=== PATIENT | female | born 1940 | race Caucasian/White ===

== ENCOUNTER 2023-11-14 12:16 | Outpatient (CLI) | payer MEDICARE, OTHER | END 2023-11-14 23:59 | disposition critical access hospital (66) | LOC: EMS 12:16 | DX: M79.622 Pain in left upper arm (principal); M25.512 Pain in left shoulder; S01.511A Laceration without foreign body of lip, initial encounter; W18.39XA Other fall on same level, initial encounter; Y92.009 Unspecified place in unspecified non-institutional (private) residence as the place of occurrence of the external cause; Z79.01 Long term (current) use of anticoagulants | CPT/HCPCS: A0425; A0427 ==

== ENCOUNTER 2023-11-14 12:35 | Emergency (ER) | payer MEDICARE, OTHER ==
--- NOTE | 2023-11-14 12:45 | ED Physician Documentation ---
PD HPI Fall - Stated complaint Stated Complaint: GLF - History obtained from History obtained from: Patient, Family (spouse), EMS - History of Present Illness Mechanism of injury: Lost balance (She was leaned against a [place] doors that she thought was closed but they were partly open and not supported her so she fell face first. Feeling okay prior to that.) Fall distance: Standing position Where injury occurred: Home Timing - onset: How many minutes ago (30), Today Injury(ies) location: Face, Left Uppper Extremity (shoulder), Left Lower Extremity (knee) Pain level max: 9 (for shoulder) Pain level now: 9 Quality of pain: Pain (mostly at left shoulder, but also at lip/nose/periorbital.) Associated symptoms: Other (upper lip lac, pain around left orbit and nose.). No: LOC, AMS, Neck pain, Weakness, Paresthesias Worsens with: Movement (the shoulder is the most area of pain with any slight movement.) Contributing factors: Anticoagulated (for atrial fib history, currently in NSR with prior ablation. digoxin and propafanone currently.) Similar symptoms before: Has not had sx before Recently seen: Not recently seen Review of Systems Constitutional: denies: Fever Nose: denies: Rhinorrhea / runny nose, Congestion Throat: denies: Sore throat Respiratory: denies: Cough GI: denies: Vomiting, Diarrhea, Bloody / black stool PD PAST MEDICAL HISTORY - Past Medical History Cardiovascular: Atrial fibrillation Respiratory: None Neuro: None Endocrine/Autoimmune: None - Allergies Allergies/Adverse Reactions: Allergies Allergy/AdvReac Type Severity Reaction Status Date / Time codeine Allergy Mild Nausea Verified 11/14/23 13:08 morphine Allergy Nausea Verified 11/14/23 13:08 Many unknown Allergy Unknown Uncoded 11/14/23 13:10 PD ED PE NORMAL - Vitals Vital signs reviewed: Yes - General General: Alert and oriented X 3, Well developed/nourished, Other (in significant pain due to left shoulder, with clinically likely anterior dislocation. Pain with any slight movement. ) - HEENT HEENT: PERRL, EOMI, Other (upper lip with partial thickness tear not crossing joi border. upper left front tooth with small chip. Nose tender without deformity. SOme early ecchymosis left periorbital without pain on eye movement. Eye itself with clear anterior and posterrior chambers. ) - Neck Neck: Supple, no meningeal sign, No bony TTP, No adenopathy, Other (cleared by CT.). No: C-Spine cleared by NEXUS criteria (came without collar. No neck pain. Could not technically clear her from [place] neck rules due to age. ) - Cardiac Cardiac: RRR, No murmur - Respiratory Respiratory: No respiratory distress, Clear bilaterally, Other (no chest tenderness. ) - Abdomen Abdomen: Soft, Non tender - Derm Derm: Normal color, Warm and dry - Extremities Extremities: Other (left knee tnder anteriorly without deformity. Left shoulder with apparent dislocation. Can get xray to eval fracture too or not. ) - Neuro Neuro: Alert and oriented X 3, No motor deficit, No sensory deficit, Normal speech Eye Opening: Spontaneous Motor: Obeys Commands Verbal: Oriented GCS Score: 15 Results - Vitals Vitals: Vital Signs - 24 hr 11/14/23 11/14/23 11/14/23 12:45 13:41 13:47 Temperature 36.5 C 36.6 C 36.7 C Heart Rate 82 84 76 Respiratory 23 36 H 18 Rate Blood Pressure 158/78 H 206/81 H 185/71 H O2 Saturation 100 98 98 If not protocol 0 : Oxygen Flow, liters/minute 11/14/23 11/14/23 11/14/23 14:30 15:10 15:34 Temperature Heart Rate 75 72 73 Respiratory 13 12 18 Rate Blood Pressure 203/71 H 190/74 H 175/70 H O2 Saturation 99 99 97 If not protocol : Oxygen Flow, liters/minute 11/14/23 11/14/23 11/14/23 15:45 16:10 17:11 Temperature 36.1 C L Heart Rate 71 70 73 Respiratory 14 15 17 Rate Blood Pressure 175/70 H 183/65 H 185/67 H O2 Saturation 100 99 100 If not protocol : Oxygen Flow, liters/minute Oxygen O2 Source Room air - Labs Labs: Laboratory Tests 11/14/23 11/14/23 11/14/23 13:00 13:00 13:00 WBC 9.2 RBC 4.74 Hgb 13.3 Hct 40.8 MCV 86.1 MCH 28.1 MCHC 32.6 RDW 14.8 Plt Count 249 MPV 10.6 Neut # (Auto) 6.6 Lymph # (Auto) 1.6 Sherman # (Auto) 0.7 Eos # (Auto) 0.2 Baso # (Auto) 0.1 Absolute Nucleated RBC 0.00 Nucleated RBC % 0.0 PT 20.8 H INR 2.0 H Sodium 131 L Potassium 3.8 Chloride 96 L Carbon Dioxide 25 Anion Gap 10.0 BUN 12 Creatinine 0.5 L Estimated GFR (MDRD) 118 Glucose 110 H Calcium 9.3 Total Bilirubin 0.7 AST 17 ALT 24 Alkaline Phosphatase 105 Total Protein 6.6 Albumin 4.0 Globulin 2.6 Albumin/Globulin Ratio 1.5 Lipase 43 - Rads (name of study) left shoulder Relevant Findings:: Prelim report reviewed, EMP independent interpretation of test (anterior dislocation without fracture) shoulder post reduction Relevant Findings:: EMP independent interpretation of test (imporved location/ reduced) left knee xray Relevant Findings:: Prelim report reviewed (no fractures), EMP independent interpretation of test head CT Relevant Findings:: Prelim report reviewed, Discussed with rads (subdural hematoma in midline falx, with 8-9 mm max width, but runs long in the falx. ) cervical SPine CT Relevant Findings:: Prelim report reviewed (no fractures nor acute injuries), Discussed with rads, EMP independent interpretation of test facial CT Relevant Findings:: Prelim report reviewed, Discussed with rads (no facial fractures. ), EMP independent interpretation of test Procedures - Reduction Body part reduced: Left, Shoulder Fracture or dislocation: Dislocation Anesthesia: Dilaudid Shoulder reduction technique: [place] / ext rotation Reduction aftercare: NV intact, Xray confirms reduction, Alignment improved, Sling, Patient tolerated well - Procedural sedation Sedation prep: Informed consent, Time out completed, Last meal (breakfast about 8 am), PE performed, ASA 2 - mild disease Sedation Medications: propofol Mallampati classification: I Patient status during sedation: Responds to tactile, Vitals remained stable, Maintained airway, Recovered uneventfully, Hypoxia (transiently until ambu assist by RT.), Needed resp assistance (for less than a minute, with bag assisting) Sedation recovery: Recovered uneventfully, Back to baseline PD Medical Decision Making - ED course Complexity details: reviewed results (knee xray is good. Shoulder xray showing dislocation. PT/INR 2.0. CBC and chemistry panel without acute abnormalities. ), considered differential (patient and spouse describe mechanical fall with injury to face, shoulder, knee. No LOC. No neuro cognitive deficit. Main pain is shoulder left.), d/w patient Reviewed Lab Results: patient is such pain with shoulder and any movement, and has good neuro exam without headache, that I focused on the shoulder reduction initially before getting pt to CT. We did successfully reduce shoulder with propofol sedation. Subsequently then to CT for head/neck/face and this showed subdural hematoma in midline falx. Pt still with GCS 15. Talked with Transfer Center who said pt is auto-accept with injury, subdural and on Coumadin. They did agree with the already ordered [facility]. Pt and family updated about recommendation and acceptance at the trauma center. - Critical Care Time(min): 70 Time Includes: Direct patient care, Reassess patient, Document care, Coordinate care, Medical consult Data interpretation: Labs Procedures excluded from critical care time: See progress note (sedation and shoulder reduction) Departure - Departure Disposition: 02 Transfer Acute Care Hosp Clinical Impression: Anticoagulant long-term use, History of atrial fibrillation, Shoulder dislocation, Subdural hematoma, Knee contusion, Accidental fall, Facial contusion Condition: Stable Record reviewed to determine appropriate education?: Yes Forms: PCP List Discharge Date/Time: 11/14/23 16:45
[2023-11-14] MEDS: HYDROmorphone 0.5 MG/0.5 ML SYRINGE IVP STA (12:54)
[2023-11-14 13:05] LABS: BASOPHILS # (AUTO) 0.1 10^3/uL (0.0-0.1); BASOPHILS % (AUTO) 0.7 %; EOSINOPHILS # (AUTO) 0.2 10^3/uL (0.0-0.7); EOSINOPHILS % (AUTO) 1.9 %; HCT - HEMATOCRIT 40.8 % (37.0-47.0); HGB - HEMOGLOBIN 13.3 g/dL (12.0-16.0); LYMPHOCYTES # (AUTO) 1.6 10^3/uL (1.5-3.5); LYMPHOCYTES % (AUTO) 17.6 %; MEAN CORPUSCULAR HEMOGLOBIN 28.1 pg (27.0-31.0); MEAN CORPUSCULAR HGB CONC 32.6 g/dL (32.0-36.0); MEAN CORPUSCULAR VOLUME 86.1 fL (81.0-99.0); MEAN PLATELET VOLUME 10.6 fL (7.9-10.8); MONOCYTES # (AUTO) 0.7 10^3/uL (0.0-1.0); MONOCYTES % (AUTO) 7.2 %; NEUTROPHILS # (AUTO) 6.6 10^3/uL (1.5-6.6); NEUTROPHILS % (AUTO) 72.2 %; PLT - PLATELET COUNT 249 10^3/uL (130-450); RED BLOOD COUNT 4.74 10^6/uL (4.20-5.40); RED CELL DISTRIBUTION WIDTH 14.8 % (12.0-15.0); WHITE BLOOD COUNT 9.2 x10^3/uL (4.8-10.8)
[2023-11-14 13:11] LABS: PT - PROTHROMBIN TIME 20.8 secs (9.9-12.6)
--- NOTE | 2023-11-14 13:14 | XRAY Report ---
PROCEDURE: Shoulder 2+V LT INDICATIONS: fall with pain proximal humerus TECHNIQUE: 3 views of the shoulder were acquired. COMPARISON: None. FINDINGS: Bones: There is suboptimal positioning. The humeral head appears medial to the glenohumeral joint sp priscilla.. No suspicious bony lesions. Visualized ribs appear intact. Soft tissues: No suspicious soft tissue calcifications. The visualized lungs are within normal limi ts. IMPRESSION: No visualized acute fracture. There is appearance of medial dislocation of the glenohumeral joint spa ce. From positioning, is difficult to ascertain if this is anterior posterior dislocation as opposed to directly medial. Clinical correlation is recommended as well as repeat views. Reviewed by: Kristin Laguerre MD on 11/14/2023 1:13 PM PDT Approved by: Kristin Laguerre MD on 11/14/2023 1:13 PM PDT Station ID: [id number]
--- NOTE | 2023-11-14 13:15 | XRAY Report ---
PROCEDURE: Knee 4+V LT INDICATIONS: fall forward, pain knee anteriorly TECHNIQUE: 3 views of the knee(s) were acquired. COMPARISON: None. FINDINGS: Bones: No fractures or dislocations. No suspicious bony lesions. Severe medial and moderate later al patellofemoral compartment narrowing. Patellar osteophytes are present. No erosions. Soft tissues: No knee joint effusion. No suspicious soft tissue calcifications or masses. IMPRESSION: Tricompartmental arthritic change. No visualized acute fracture or dislocation. However, occult injury cannot be excluded. Recommend marilee rt interval imaging follow-up in 7-10 days as clinically indicated for additional evaluation. Reviewed by: Kristin Laguerre MD on 11/14/2023 1:14 PM PDT Approved by: Kristin Laguerre MD on 11/14/2023 1:14 PM PDT Station ID: [id number]
[2023-11-14 13:18] LABS: ALBUMIN/GLOBULIN RATIO 1.5 (1.0-2.2); BILIRUBIN,TOTAL 0.7 mg/dL (0.2-1.0); CALCIUM 9.3 mg/dL (8.5-10.3); CREATININE 0.5 mg/dL (0.6-1.3); POTASSIUM 3.8 mmol/L (3.5-4.5); TOTAL PROTEIN 6.6 g/dL (6.4-8.9)
[2023-11-14] MEDS: HYDROmorphone 1 MG/ML CARPUJECT IVP STA (13:24)
[2023-11-14] MEDS: PROPOFOL 200 MG/20 ML VIAL IVP STA (14:15)
[2023-11-14] MEDS: SODIUM CHLORIDE 0.9% 1,000 ML IV STA (14:16)
--- NOTE | 2023-11-14 14:39 | XRAY Report ---
PROCEDURE: Shoulder 2+V LT INDICATIONS: post reduction TECHNIQUE: 3 views of the shoulder were acquired. COMPARISON: Left shoulder radiograph on the same day. FINDINGS: Bones: There is interval reduction of earlier noted anterior inferior glenohumeral joint dislocation . Shoulder alignment is now anatomic. No gross acute fracture is noted. Acromioclavicular joint and g lenohumeral joint osteophytic changes are seen. Slight superior migration of humeral head is also. No suspicious bony lesions. Visualized ribs appear intact. Soft tissues: No suspicious soft tissue calcifications. The visualized lungs are within normal limi ts. IMPRESSION: Interval reduction of earlier noted glenohumeral joint dislocation with near anatomic shoulder alignm ent. No definite acute fracture is seen. Superior migration of humeral head in relation to glenoid wh ich can be seen associated with rotator cuff tendon rupture. Moderate shoulder joint osteoarthritis. Reviewed by: Davis Moffett MD on 11/14/2023 2:37 PM PDT Approved by: Davis Moffett MD on 11/14/2023 2:37 PM PDT Station ID: [id number]
--- NOTE | 2023-11-14 15:45 | CT Report ---
PROCEDURE: Head WO INDICATIONS: fall, struck face/head, on Warfarin TECHNIQUE: Noncontrast 4.5 mm thick angled axial sections acquired from the foramen magnum to the vertex. For r adiation dose reduction, the following was used: automated exposure control, adjustment of mA and/or kV according to patient size. COMPARISON: CT maxillofacial, cervical spine 11/14/2023 FINDINGS: Image quality: Excellent. The ventricular system and cortical sulci demonstrate atrophy, consistent for patient's stated age. There are areas of hypodensity in the periventricular and subcortical white matter. There is hyperde nsity within the anterior as well as portions of the posterior falx superiorly with a greatest transv erse dimension measuring 8 mm. No mass lesion or midline shift. Brainstem is unremarkable. Globes a re symmetrical. Sinuses are aerated. Osseous structures are intact. IMPRESSION: Falx subdural hematoma measuring greatest transverse dimension of 8 mm. Atrophy and chronic microvascular ischemic changes are present. The above findings were discussed with Dr. Neftali Jay on 11/14/2023 at 3:40 PM. Reviewed by: Kristin Laguerre MD on 11/14/2023 3:44 PM PDT Approved by: Kristin Laguerre MD on 11/14/2023 3:44 PM PDT Station ID: [id number]
--- NOTE | 2023-11-14 15:47 | CT Report ---
PROCEDURE: Maxillofacial WO INDICATIONS: fall, struck maxillary face/nose TECHNIQUE: Noncontrast 1.5 mm thick axial images acquired from the mandible through the frontal sinuses, with co samson and sagittal reformatting. For radiation dose reduction, the following was used: automated ex posure control, adjustment of mA and/or kV according to patient size. COMPARISON: CT head, cervical spine 11/14/2023 FINDINGS: Image quality: Excellent. Bones and teeth: Orbital el are intact. Sinus el show no fracture or deformity. Nasal bones and septum are intact. Visualized portions of the mandible demonstrate no fractures or subluxation. Zygomatic arches are intact. Pterygoid plates are intact. Visualized portions of the skull base an d auditory canals are intact. Sinuses: Paranasal sinuses are aerated, without fluid levels, mucosal thickening, or mucoceles. Mas toid air cells are aerated. Soft tissues: No edema, masses, or fluid collections. No enlarged lymph nodes. No soft tissue lace rations or debris. Intracranial contents demonstrate a falx hematoma better appreciated on CTA head. Vascular: Visualized vascular structures appear normal in the absence of contrast. Bony vascular fo ramina and canals are intact. IMPRESSION: No visualized fracture. Falx subdural hematoma better visualized on CTA head of 11/14/2023. Reviewed by: Kristin Laguerre MD on 11/14/2023 3:46 PM PDT Approved by: Kristin Laguerre MD on 11/14/2023 3:46 PM PDT Station ID: [id number]
--- NOTE | 2023-11-14 15:48 | CT Report ---
PROCEDURE: Cervical Spine WO INDICATIONS: fall, struck face/head TECHNIQUE: Noncontrast 3 mm thick sections acquired from the skull base to the T4 level. Sagittal and coronal r eformats were then constructed. For radiation dose reduction, the following was used: automated exp osure control, adjustment of mA and/or kV according to patient size. COMPARISON: None. FINDINGS: Image quality: Excellent. Bones: No fractures or dislocations. Visualized superior ribs are intact. Multilevel degenerative changes are present. There is trace retrolisthesis of C3 on C4, trace anterolisthesis of C5 on C6. Soft tissues: Prevertebral soft tissues are normal in thickness. No paravertebral hematomas. No ap ical pneumothoraces. IMPRESSION: Degenerative changes without visualized fracture. Reviewed by: Kristin Laguerre MD on 11/14/2023 3:47 PM PDT Approved by: Kristin Laguerre MD on 11/14/2023 3:47 PM PDT Station ID: [id number]
[2023-11-14 15:57] VITALS: O2SAT 100
[2023-11-14] MEDS: PROTHROMBIN COMPLEX CONC 500 UNIT VIAL IV STA (16:43)
[2023-11-14] MEDS ORDERED: PROTHROMBIN COMPLEX CONCENTRATE ONE (16:45)
[2023-11-14 17:18] VITALS: BP 185/67
== END 2023-11-14 16:45 | disposition short-term general hospital (02) ==
LOC: EDBD → ED 12:35
DX: S06.5X0A Traumatic subdural hemorrhage without loss of consciousness, initial encounter (principal); S43.005A Unspecified dislocation of left shoulder joint, initial encounter; S00.83XA Contusion of other part of head, initial encounter; S80.02XA Contusion of left knee, initial encounter; W18.39XA Other fall on same level, initial encounter; I48.91 Unspecified atrial fibrillation; Z79.01 Long term (current) use of anticoagulants
CPT/HCPCS: 23655; 36415; 70450; 70486; 72125; 73030; 73564; 80053; 83690; 85025; 85610; 96374; 99152; 99285; 99291; J1170; J7168

== ENCOUNTER 2023-11-15 15:23 | Inpatient (IN) | payer MEDICARE, OTHER ==
[2023-11-15] MEDS ORDERED: SODIUM CHLORIDE FLUSH 0.9% 10 ML SYRINGE IVP PRN (16:21)
--- NOTE | 2023-11-15 22:31 | HISTORY & PHYSICAL EXAMINATION ---
History of Present Illness - Admitted From Admitted From:: [facility] - History Obtained From Records Reviewed: Yes History obtained from: Patient and Daryn DURAN - History of Present Illness HPI Comment/Other: Annette Monroe is a 82-year-old woman who had a mechanical ground-level fall that occurred when she tripped on a door in a house. Patient fell forward and hit her head with no loss of consciousness. She was brought to the [facility] and underwent a CT scan of the head which revealed a left-sided eccentric I will sign subdural hematoma measuring approximately 9 mm in thickness with no mass effect or midline shift. Patient has a history of atrial fibrillation and is on warfarin. This was reversed with PCC and vitamin K and the decision was made to transfer the patient to [facility] for escalation of care. Patient's fall also resulted in a shoulder dislocation that has been resolved. At [facility] she underwent a repeat CT scan of the head which was stable. Her Luciano Coma Scale remained at 15 and her neurologic exam was normal. Patient and the family felt that she was below her baseline functional status and would need significant assistance at home that she did not have and because [facility] was on divert the patient was transferred back to [facility] for further care and disposition. History - Past Medical History Cardiovascular: reports: Hypertension, High cholesterol, Atrial fibrillation Respiratory: reports: Asthma, CPAP use Neuro: reports: Head injury Endocrine/Autoimmune: reports: None GI: reports: GERD, Colon polyps, Chronic constipation, Other : reports: Frequency Derm: reports: Herpes zoster Other Past Medical History: ongoing esophageal swelling- followed by paper twister - Past Surgical History General: reports: Appendectomy, Colonoscopy, EGD Ortho: reports: Arthroscopic surgery, Other /RAILROAD COOK: reports: Hysterectomy, Mastectomy Neuro: reports: Other HEENT: reports: Cataracts, Tonsil/Adenoidectomy Meds/Allgy - Home Medications Home Medications: Ambulatory Orders Medication Instructions Recorded Confirmed Digoxin [Lanoxin] 250 mcg PO DAILY 11/15/23 11/15/23 Lubriprostone 24 mcg PO QDAC 11/15/23 11/15/23 Magnesium Oxide [Mag Ox] 400 mg PO DAILYWM 11/15/23 11/15/23 Pravastatin Sodium 20 mg PO QPM 11/15/23 11/15/23 Propafenone HCl [Propafenone HCl 425 mg PO BID 11/15/23 11/15/23 ER] Spironolactone [Aldactone] 12.5 mg PO DAILY 11/15/23 11/15/23 Triamcinolone 0.1% Oint [Kenalog 1 applic TOP PRN 11/15/23 0.1% Oint] Warfarin [Coumadin] 5 mg PO 1400 11/15/23 11/15/23 - Allergies Allergies/Adverse Reactions: Allergies Allergy/AdvReac Type Severity Reaction Status Date / Time codeine Allergy Mild Nausea Verified 11/14/23 13:08 morphine Allergy Nausea Verified 11/14/23 13:08 Many unknown Allergy Unknown Uncoded 11/14/23 13:10 Exam - Vital Signs Vital Signs: Vital Signs x48h Temp Pulse Resp BP Pulse Ox 11/15/23 20:00 37.2 C 83 20 148/56 H 95 - Physical Exam General Appearance: positive: No acute distress, Alert Eyes Bilateral: positive: Other (Positive ecchymosis of left eye) Neck: positive: Thyroid nml, Trachea midline Respiratory: positive: Other (Good air exchange in all lung galicia no wheezing no crackles.) Cardiovascular: positive: Other (Positive S1-S2 no extra heart sounds.) Abdomen: positive: Other (Soft nontender nondistended positive bowel sounds.) Skin: positive: No rash Extremities: positive: Non-tender Conclusion/Plan - Problem List (1) Subdural hematoma Conclusion/Plan: Patient neurologic status is at baseline. Anticoagulation has been withheld. [facility] neurosurgery trauma clinic wants to see her back in approximately [address] scan of the head. They recommended holding her warfarin for 7 days. (2) Accidental fall Conclusion/Plan: Patient had an accidental fall after tripping over a door entryway. This resulted in a subdural hematoma, left periorbital ecchymosis, a dislocated shoulder that has been reduced. She has been evaluated by PT/OT at [facility] and at this time they feel it is necessary for her to go to a [place] [facility]. Patient is currently stable for transfer and awaiting placement for [place] [facility].
[2023-11-16] MEDS: SODIUM CHLORIDE FLUSH 0.9% 10 ML SYRINGE IVP SCH (01:30)
[2023-11-16] MEDS: PROPAFENONE HCL 425 MG PO SCH (08:42)
[2023-11-16] MEDS: polyethylene glycoL 3350 17 GM PACKET PO SCH (08:42)
[2023-11-16] MEDS: SENNA 8.6 MG TABLET PO PRN (08:42)
[2023-11-16 11:28] LABS: BASOPHILS % (AUTO) 0.5 %; EOSINOPHILS # (AUTO) 0.1 10^3/uL (0.0-0.7); EOSINOPHILS % (AUTO) 0.9 %; HCT - HEMATOCRIT 32.9 % (37.0-47.0); HGB - HEMOGLOBIN 10.8 g/dL (12.0-16.0); LYMPHOCYTES # (AUTO) 1.3 10^3/uL (1.5-3.5); LYMPHOCYTES % (AUTO) 15.9 %; MEAN CORPUSCULAR HEMOGLOBIN 28.7 pg (27.0-31.0); MEAN CORPUSCULAR HGB CONC 32.8 g/dL (32.0-36.0); MEAN CORPUSCULAR VOLUME 87.5 fL (81.0-99.0); MEAN PLATELET VOLUME 10.5 fL (7.9-10.8); MONOCYTES # (AUTO) 0.7 10^3/uL (0.0-1.0); MONOCYTES % (AUTO) 9.4 %; NEUTROPHILS # (AUTO) 5.8 10^3/uL (1.5-6.6); NEUTROPHILS % (AUTO) 72.8 %; PLT - PLATELET COUNT 220 10^3/uL (130-450); RED BLOOD COUNT 3.76 10^6/uL (4.20-5.40); WHITE BLOOD COUNT 7.9 x10^3/uL (4.8-10.8)
[2023-11-16 11:39] LABS: CALCIUM 8.8 mg/dL (8.5-10.3); CREATININE 0.4 mg/dL (0.6-1.3); MAGNESIUM 1.6 mg/dL (1.7-2.3); POTASSIUM 3.4 mmol/L (3.5-4.5)
[2023-11-16] MEDS: LOSARTAN 50 MG TABLET PO SCH (12:19)
[2023-11-16] MEDS: POTASSIUM CHLORIDE 20 MEQ/15 ML UDC PO ONE (17:05)
[2023-11-16] MEDS: MAGNESIUM OXIDE 400 MG TABLET PO SCH (17:05)
--- NOTE | 2023-11-16 17:57 | PHARMACY PROGRESS NOTE ---
- Best Possible Medication History Admit Date and Time: 11/15/231946 Processed by: Pharmacy Medications reviewed in ED?: No Medication History completed: Yes Patient Interview: Completed (Patient interview completed by broadcast operations technicianEnriqueta) Secondary Source(s): Prescription bottles, Spouse/Significant other, Insurance records As the person ultimately responsible for medication therapy, providers are able to order a medication from an existing home medication list in [facility] via the "Reconcile Routine" prior to Confirmation of that medication by production support engineer. Such practice is discouraged except when the physician, in their clinical judgment, deems that a medical need exists for a medication without regard to previous use.
--- NOTE | 2023-11-16 20:25 | PROVIDER PROGRESS NOTE ---
Assessment/Plan - Problem List (1) Subdural hematoma Assessment/Plan: (1) Subdural hematoma Conclusion/Plan: Patient neurologic status is at baseline. Anticoagulation has been withheld. [facility] neurosurgery trauma clinic wants to see her back in approximately [address] scan of the head. They recommended holding her warfarin for 7 days. (2) Accidental fall Conclusion/Plan: Patient had an accidental fall after tripping over a door entryway. This resulted in a subdural hematoma, left periorbital ecchymosis, a dislocated shoulder that has been reduced. She has been evaluated by PT/OT at [facility] and at this time they feel it is necessary for her to go to a [facility] facility. Patient is currently stable for transfer and awaiting placement for [facility] facility. (3) Atrial Fibrillation Continue propafenone. Reinitiate treatment with digoxin. - Current Meds Current Meds: Current Medications Generic Name Dose Route Start Last Admin Trade Name Freq PRN Reason Stop Dose Admin Losartan Potassium 50 mg 11/16/23 12:00 11/16/23 12:19 Losartan 50 Mg Tablet PO 50 mg DAILY DAISHA Administration Magnesium Oxide 400 mg 11/16/23 15:00 11/16/23 17:05 Magnesium Oxide 400 Mg Tablet PO 400 mg DAILYWM DAISHA Administration Propafenone Hcl Er 1 each 11/16/23 09:00 11/16/23 09:52 425 Mg Cap.Er.12h PO 1 each BID DAISHA Administration Polyethylene Glycol 17 gm 11/16/23 09:00 11/16/23 08:42 Polyethylene Glycol 3350 17 Gm Packet PO 17 gm DAILY DAISHA Administration Senna 8.6 mg 11/16/23 07:08 11/16/23 08:42 Senna 8.6 Mg Tablet PO 8.6 mg DAILY PRN Administration Constipation Sodium Chloride 10 ml 11/15/23 17:00 11/16/23 17:05 Sodium Chloride Flush 0.9% 10 Ml Syringe IVP 10 ml 0100,0900,1700 DAISHA Administration - Lab Result Fish Bone Diagrams: 11/16/23 11:22 11/16/23 11:22 - Additional Planning My Orders: My Active Orders 11/16/23 Evaluate and Treat OT [OT] Routine Evaluate and Treat PT [PT] Routine 11/16/23 Breakfast DIET [Soft Mechanical Diet] [DIET] 11/16/23 07:08 Senna [Senokot] 8.6 mg PO DAILY PRN 11/16/23 07:09 HYDROcod/ACETAM 5/325 [[place] 5/325] 1 tab PO Q4HR PRN 11/16/23 09:00 Patient Own Med 1 each PO BID polyethylene glycoL 3350 [Miralax] 17 gm PO DAILY 11/16/23 12:00 Losartan [Cozaar] 50 mg PO DAILY 11/16/23 15:00 Magnesium Oxide [Mag Ox] 400 mg PO DAILYWM 11/16/23 19:00 Budesonide [Pulmicort] 0.5 mg INH RTBID Subjective - Subjective Patient Reports: Other (Alert. Denies chest pain, shortness of breath and abdominal pain. She complains of intermittent left shoulder pain no other complaints at this time.) Objective Vital Signs: Vital Signs - 24 hr 11/16/23 11/16/23 11/16/23 00:05 07:52 10:04 Temperature 36.8 C 37.1 C Heart Rate [ 80 85 81 Brachial] Heart Rate [ Sitting] Heart Rate [ Standing] Respiratory 18 20 Rate Blood Pressure 135/51 H 161/72 H 158/62 H [Right Brachial artery] Blood Pressure [Right Radial artery] Blood Pressure [Sitting] Blood Pressure [Standing] O2 Saturation 97 96 O2 Saturation [ Sitting] 11/16/23 11/16/23 11/16/23 13:17 13:18 15:26 Temperature 37.0 C Heart Rate [ 75 Brachial] Heart Rate [ 89 89 Sitting] Heart Rate [ 97 97 Standing] Respiratory 18 Rate Blood Pressure [Right Brachial artery] Blood Pressure 163/62 H [Right Radial artery] Blood Pressure 135/58 H 135/58 H [Sitting] Blood Pressure 111/58 L 111/58 L [Standing] O2 Saturation 96 O2 Saturation [ 97 Sitting] 11/16/23 17:18 Temperature Heart Rate [ 79 Brachial] Heart Rate [ Sitting] Heart Rate [ Standing] Respiratory Rate Blood Pressure [Right Brachial artery] Blood Pressure 154/59 H [Right Radial artery] Blood Pressure [Sitting] Blood Pressure [Standing] O2 Saturation 95 O2 Saturation [ Sitting] Oxygen O2 Source Room air I&O (Last 24 Hrs): Intake and Output Totals x24h 11/14/23 11/15/23 11/16/23 23:59 23:59 23:59 Intake Total 1940 Output Total 100 350 Balance -100 1590 General: Alert, Oriented x3, Mild distress HEENT: Atraumatic Neck: No JVD, No thyromegaly Neuro: Alert, Non Focal Cardiovascular: Other (Positive S1-S2 no extra heart sounds.) Respiratory: Other (Good air exchange in all lung [place] no wheezing no crackles.) Abdomen: Other (Soft nondistended positive bowel sounds.) Extremities: No cyanosis, No edema Skin: No rashes - Results Results: Laboratory Results WBC 7.9 x10^3/uL (4.8-10.8) 11/16/23 11:22 RBC 3.76 10^6/uL (4.20-5.40) L 11/16/23 11:22 Hgb 10.8 g/dL (12.0-16.0) L 11/16/23 11:22 Hct 32.9 % (37.0-47.0) L 11/16/23 11:22 MCV 87.5 fL (81.0-99.0) 11/16/23 11:22 MCH 28.7 pg (27.0-31.0) 11/16/23 11:22 MCHC 32.8 g/dL (32.0-36.0) 11/16/23 11:22 RDW 15.0 % (12.0-15.0) 11/16/23 11:22 Plt Count 220 10^3/uL (130-450) 11/16/23 11:22 MPV 10.5 fL (7.9-10.8) 11/16/23 11:22 Neut # (Auto) 5.8 10^3/uL (1.5-6.6) 11/16/23 11:22 Lymph # (Auto) 1.3 10^3/uL (1.5-3.5) L 11/16/23 11:22 [place] # (Auto) 0.7 10^3/uL (0.0-1.0) 11/16/23 11:22 Eos # (Auto) 0.1 10^3/uL (0.0-0.7) 11/16/23 11:22 Baso # (Auto) 0.0 10^3/uL (0.0-0.1) 11/16/23 11:22 Absolute Nucleated RBC 0.00 x10^3/uL 11/16/23 11:22 Nucleated RBC % 0.0 /100WBC 11/16/23 11:22 Sodium 131 mmol/L (135-145) L 11/16/23 11:22 Potassium 3.4 mmol/L (3.5-4.5) L 11/16/23 11:22 Chloride 95 mmol/L (101-111) L 11/16/23 11:22 Carbon Dioxide 32 mmol/L (21-32) 11/16/23 11:22 Anion Gap 4.0 (6-13) L 11/16/23 11:22 BUN 7 mg/dL (6-20) 11/16/23 11:22 Creatinine 0.4 mg/dL (0.6-1.3) L 11/16/23 11:22 Estimated GFR (MDRD) 152 (>89) 11/16/23 11:22 Glucose 119 mg/dL (74-104) H 11/16/23 11:22 Calcium 8.8 mg/dL (8.5-10.3) 11/16/23 11:22 Phosphorus 3.0 mg/dL (2.5-5.0) 11/16/23 11:22 Magnesium 1.6 mg/dL (1.7-2.3) L 11/16/23 11:22
[2023-11-16] MEDS: HYDROcod/ACETAM 5/325 MG TABLET PO PRN (20:53)
[2023-11-16] MEDS: BUDESONIDE 0.5 MG/2 ML NEB INH SCH (23:25)
[2023-11-17] MEDS ORDERED: LORATADINE 10 MG TABLET PO PRN (09:00)
[2023-11-17] MEDS: DIGOXIN 125 MCG TABLET PO SCH (10:01)
[2023-11-17] MEDS: DOCUSATE SODIUM 250 MG CAPSULE PO SCH (10:05)
[2023-11-17] MEDS: SENNA 8.6 MG TABLET PO SCH (10:06)
--- NOTE | 2023-11-17 23:18 | PROVIDER PROGRESS NOTE ---
Assessment/Plan - Problem List (1) Subdural hematoma Assessment/Plan: Patient neurologic status is at baseline. Anticoagulation has been withheld. [facility] neurosurgery trauma clinic wants to see her back in approximately [address] scan of the head. They recommended holding her warfarin for 7 days. (2) Accidental fall Conclusion/Plan: Patient had an accidental fall after tripping over a door entryway. This resulted in a subdural hematoma, left periorbital ecchymosis, a dislocated shoulder that has been reduced. She has been evaluated by PT/OT at [facility] and at this time they feel it is necessary for her to go to a half-way facility. Patient is currently stable for transfer and awaiting placement for half-way facility. (3) Atrial Fibrillation Continue propafenone. Reinitiate treatment with digoxin. (4) Disposition Patient is medically cleared for transfer to a half-way facility. - Current Meds Current Meds: Current Medications Generic Name Dose Route Start Last Admin Trade Name Freq PRN Reason Stop Dose Admin Hydrocodone Bitart/Acetaminophen 1 tab 11/16/23 07:09 11/17/23 19:30 Hydrocod/Acetam 5/325 Mg Tablet PO 1 tab Q4HR PRN Administration Moderate Pain (Level 4-6) Budesonide 0.5 mg 11/16/23 19:00 11/17/23 20:19 Budesonide 0.5 Mg/2 Ml Neb INH 0.5 mg RTBID DAISHA Administration Digoxin 250 mcg 11/17/23 09:00 11/17/23 10:01 Digoxin 125 Mcg Tablet PO 250 mcg DAILY DAISHA Administration Docusate Sodium 250 - 500 mg 11/17/23 09:00 11/17/23 10:05 Docusate Sodium 250 Mg Capsule PO Not Given DAILY DAISHA Losartan Potassium 50 mg 11/16/23 12:00 11/17/23 10:02 Losartan 50 Mg Tablet PO 50 mg DAILY DAISHA Administration Magnesium Oxide 400 mg 11/16/23 15:00 11/17/23 10:05 Magnesium Oxide 400 Mg Tablet PO Not Given DAILYWM DAISHA Propafenone Hcl Er 1 each 11/16/23 09:00 11/17/23 20:32 425 Mg Cap.Er.12h PO 1 each BID DAISHA Administration Polyethylene Glycol 17 gm 11/16/23 09:00 11/17/23 10:02 Polyethylene Glycol 3350 17 Gm Packet PO 17 gm DAILY DAISHA Administration Senna 8.6 mg 11/16/23 07:08 11/16/23 08:42 Senna 8.6 Mg Tablet PO 8.6 mg DAILY PRN Administration Constipation Senna 8.6 - 17.2 mg 11/17/23 09:00 11/17/23 10:06 Senna 8.6 Mg Tablet PO Not Given DAILY DAISHA Sodium Chloride 10 ml 11/15/23 17:00 11/17/23 19:30 Sodium Chloride Flush 0.9% 10 Ml Syringe IVP 10 ml 0100,0900,1700 DAISHA Administration - Lab Result Fish Bone Diagrams: 11/16/23 11:22 11/16/23 11:22 - Additional Planning My Orders: My Active Orders 11/17/23 09:00 Digoxin [Lanoxin] 250 mcg PO DAILY Docusate Sodium 250Mg Capsule [Colace 250Mg Capsule] 250 - 500 mg PO DAILY Loratadine [Claritin] 10 mg PO DAILY PRN Senna [Senokot] 8.6 - 17.2 mg PO DAILY 11/17/23 20:21 Nebulizer [Nebulizer/MDI Tx.] [RC] BID Subjective - Subjective Patient Reports: Other (Alert. Denies headache complains of intermittent left shoulder pain. No other complaints at this time.) Objective Vital Signs: Vital Signs - 24 hr 11/16/23 11/17/23 11/17/23 23:35 06:53 07:37 Temperature 37.1 C 36.6 C 37.1 C Heart Rate Heart Rate [ 81 82 74 Brachial] Respiratory 18 18 22 Rate Blood Pressure 115/51 L 138/52 H [Right Brachial artery] Blood Pressure 123/64 [Right Radial artery] O2 Saturation 97 97 96 11/17/23 11/17/23 16:00 20:20 Temperature 36.7 C Heart Rate 66 Heart Rate [ 69 Brachial] Respiratory 16 20 Rate Blood Pressure [Right Brachial artery] Blood Pressure 166/77 H [Right Radial artery] O2 Saturation 97 Oxygen O2 Source Room air I&O (Last 24 Hrs): Intake and Output Totals x24h 11/15/23 11/16/23 11/17/23 23:59 23:59 23:59 Intake Total 1940 1830 Output Total 942 634 9694 Balance -100 1290 -70 General: Alert, No acute distress Neck: Supple, No JVD Neuro: Alert, Non Focal Cardiovascular: Other (Positive S1-S2 no extra heart sounds.) Respiratory: Other (Good air exchange in all lung [place] no wheezing no crackles.) Abdomen: Other (Positive bowel sounds soft nontender nondistended.) Extremities: No edema Skin: No rashes - Results Results: Laboratory Results WBC 7.9 x10^3/uL (4.8-10.8) 11/16/23 11:22 RBC 3.76 10^6/uL (4.20-5.40) L 11/16/23 11:22 Hgb 10.8 g/dL (12.0-16.0) L 11/16/23 11:22 Hct 32.9 % (37.0-47.0) L 11/16/23 11:22 MCV 87.5 fL (81.0-99.0) 11/16/23 11:22 MCH 28.7 pg (27.0-31.0) 11/16/23 11:22 MCHC 32.8 g/dL (32.0-36.0) 11/16/23 11:22 RDW 15.0 % (12.0-15.0) 11/16/23 11:22 Plt Count 220 10^3/uL (130-450) 11/16/23 11:22 MPV 10.5 fL (7.9-10.8) 11/16/23 11:22 Neut # (Auto) 5.8 10^3/uL (1.5-6.6) 11/16/23 11:22 Lymph # (Auto) 1.3 10^3/uL (1.5-3.5) L 11/16/23 11:22 [place] # (Auto) 0.7 10^3/uL (0.0-1.0) 11/16/23 11:22 Eos # (Auto) 0.1 10^3/uL (0.0-0.7) 11/16/23 11:22 Baso # (Auto) 0.0 10^3/uL (0.0-0.1) 11/16/23 11:22 Absolute Nucleated RBC 0.00 x10^3/uL 11/16/23 11:22 Nucleated RBC % 0.0 /100WBC 11/16/23 11:22 Sodium 131 mmol/L (135-145) L 11/16/23 11:22 Potassium 3.4 mmol/L (3.5-4.5) L 11/16/23 11:22 Chloride 95 mmol/L (101-111) L 11/16/23 11:22 Carbon Dioxide 32 mmol/L (21-32) 11/16/23 11:22 Anion Gap 4.0 (6-13) L 11/16/23 11:22 BUN 7 mg/dL (6-20) 11/16/23 11:22 Creatinine 0.4 mg/dL (0.6-1.3) L 11/16/23 11:22 Estimated GFR (MDRD) 152 (>89) 11/16/23 11:22 Glucose 119 mg/dL (74-104) H 11/16/23 11:22 Calcium 8.8 mg/dL (8.5-10.3) 11/16/23 11:22 Phosphorus 3.0 mg/dL (2.5-5.0) 11/16/23 11:22 Magnesium 1.6 mg/dL (1.7-2.3) L 11/16/23 11:22
--- NOTE | 2023-11-18 21:39 | PROVIDER PROGRESS NOTE ---
Assessment/Plan - Problem List (1) Subdural hematoma Assessment/Plan: Patient neurologic status is at baseline. Anticoagulation has been withheld. [facility] neurosurgery trauma clinic wants to see her back in approximately [address] scan of the head. They recommended holding her warfarin for 7 days. (2) Accidental fall Conclusion/Plan: Patient had an accidental fall after tripping over a door entryway. This resulted in a subdural hematoma, left periorbital ecchymosis, a dislocated shoulder that has been reduced. She has been evaluated by PT/OT at [facility] and at this time they feel it is necessary for her to go to a prison facility. Patient is currently stable for transfer and awaiting placement for prison facility. (3) Atrial Fibrillation Continue propafenone. Reinitiate treatment with digoxin. (4) Disposition Patient is medically cleared for transfer to a prison facility. - Current Meds Current Meds: Current Medications Generic Name Dose Route Start Last Admin Trade Name Freq PRN Reason Stop Dose Admin Hydrocodone Bitart/Acetaminophen 1 tab 11/16/23 07:09 11/18/23 18:15 Hydrocod/Acetam 5/325 Mg Tablet PO 1 tab Q4HR PRN Administration Moderate Pain (Level 4-6) Budesonide 0.5 mg 11/16/23 19:00 11/18/23 17:48 Budesonide 0.5 Mg/2 Ml Neb INH 0.5 mg RTBID DAISHA Administration Digoxin 250 mcg 11/17/23 09:00 11/18/23 09:12 Digoxin 125 Mcg Tablet PO 250 mcg DAILY DAISHA Administration Docusate Sodium 250 - 500 mg 11/17/23 09:00 11/18/23 09:12 Docusate Sodium 250 Mg Capsule PO 250 mg DAILY DAISHA Administration Losartan Potassium 50 mg 11/16/23 12:00 11/18/23 09:12 Losartan 50 Mg Tablet PO 50 mg DAILY DAISHA Administration Magnesium Oxide 400 mg 11/16/23 15:00 11/18/23 09:12 Magnesium Oxide 400 Mg Tablet PO Not Given DAILYWM DAISHA Propafenone Hcl Er 1 each 11/16/23 09:00 11/18/23 10:31 425 Mg Cap.Er.12h PO 1 each BID DAISHA Administration Polyethylene Glycol 17 gm 11/16/23 09:00 11/18/23 09:12 Polyethylene Glycol 3350 17 Gm Packet PO 17 gm DAILY DAISHA Administration Senna 8.6 - 17.2 mg 11/17/23 09:00 11/18/23 12:34 Senna 8.6 Mg Tablet PO Not Given DAILY DAISHA Sodium Chloride 10 ml 11/15/23 17:00 11/18/23 16:49 Sodium Chloride Flush 0.9% 10 Ml Syringe IVP 10 ml 0100,0900,1700 DAISHA Administration - Lab Result Fish Bone Diagrams: 11/16/23 11:22 11/16/23 11:22 - Additional Planning My Orders: My Active Orders 11/19/23 07:00 Lubriprostone 24 mcg PO QDAC 11/19/23 09:00 Senna [Senokot] 8.6 mg PO DAILY Subjective - Subjective Patient Reports: Other (Alert. Patient appears to be at her baseline. She wants to get out of bed more. She has no other complaints at this time.) Objective Vital Signs: Vital Signs - 24 hr 11/18/23 11/18/23 11/18/23 00:55 07:49 08:00 Temperature 36.8 C 36.9 C Heart Rate 80 Heart Rate [ 72 72 Brachial] Respiratory 16 20 16 Rate Blood Pressure 155/63 H 198/76 H [Right Radial artery] O2 Saturation 96 97 11/18/23 11/18/23 16:00 17:53 Temperature 37.1 C Heart Rate 71 Heart Rate [ 65 Brachial] Respiratory 16 18 Rate Blood Pressure 171/72 H [Right Radial artery] O2 Saturation 96 Oxygen O2 Source Room air I&O (Last 24 Hrs): Intake and Output Totals x24h 11/16/23 11/17/23 11/18/23 23:59 23:59 23:59 Intake Total 1940 1830 1540 Output Total 650 1900 4150 Balance 1290 -70 -2610 General: Alert, Oriented x3, No acute distress HEENT: Atraumatic Neck: Supple, No JVD Lymphatic: no adenopathy Neuro: Alert, Non Focal Cardiovascular: Other (Positive S1-S2 no extra heart sounds.) Respiratory: Other (Good air exchange in all lung [place] no wheezing no crackles.) Abdomen: Normal bowel sounds, Soft, No tenderness, Other Extremities: No cyanosis, No edema Skin: No rashes - Results Results: Laboratory Results WBC 7.9 x10^3/uL (4.8-10.8) 11/16/23 11: RBC 3.76 10^6/uL (4.20-5.40) L 11/16/23 11:22 Hgb 10.8 g/dL (12.0-16.0) L 11/16/23 11:22 Hct 32.9 % (37.0-47.0) L 11/16/23 11:22 MCV 87.5 fL (81.0-99.0) 11/16/23 11:22 MCH 28.7 pg (27.0-31.0) 11/16/23 11:22 MCHC 32.8 g/dL (32.0-36.0) 11/16/23 11:22 RDW 15.0 % (12.0-15.0) 11/16/23 11:22 Plt Count 220 10^3/uL (130-450) 11/16/23 11:22 MPV 10.5 fL (7.9-10.8) 11/16/23 11:22 Neut # (Auto) 5.8 10^3/uL (1.5-6.6) 11/16/23 11:22 Lymph # (Auto) 1.3 10^3/uL (1.5-3.5) L 11/16/23 11:22 [place] # (Auto) 0.7 10^3/uL (0.0-1.0) 11/16/23 11:22 Eos # (Auto) 0.1 10^3/uL (0.0-0.7) 11/16/23 11:22 Baso # (Auto) 0.0 10^3/uL (0.0-0.1) 11/16/23 11:22 Absolute Nucleated RBC 0.00 x10^3/uL 11/16/23 11:22 Nucleated RBC % 0.0 /100WBC 11/16/23 11:22 Sodium 131 mmol/L (135-145) L 11/16/23 11:22 Potassium 3.4 mmol/L (3.5-4.5) L 11/16/23 11:22 Chloride 95 mmol/L (101-111) L 11/16/23 11:22 Carbon Dioxide 32 mmol/L (21-32) 11/16/23 11:22 Anion Gap 4.0 (6-13) L 11/16/23 11:22 BUN 7 mg/dL (6-20) 11/16/23 11:22 Creatinine 0.4 mg/dL (0.6-1.3) L 11/16/23 11:22 Estimated GFR (MDRD) 152 (>89) 11/16/23 11:22 Glucose 119 mg/dL (74-104) H 11/16/23 11:22 Calcium 8.8 mg/dL (8.5-10.3) 11/16/23 11:22 Phosphorus 3.0 mg/dL (2.5-5.0) 11/16/23 11:22 Magnesium 1.6 mg/dL (1.7-2.3) L 11/16/23 11:22
[2023-11-19 06:02] LABS: BASOPHILS # (AUTO) 0.1 10^3/uL (0.0-0.1); BASOPHILS % (AUTO) 0.9 %; EOSINOPHILS # (AUTO) 0.4 10^3/uL (0.0-0.7); EOSINOPHILS % (AUTO) 5.2 %; HCT - HEMATOCRIT 32.8 % (37.0-47.0); HGB - HEMOGLOBIN 10.3 g/dL (12.0-16.0); LYMPHOCYTES # (AUTO) 1.4 10^3/uL (1.5-3.5); LYMPHOCYTES % (AUTO) 20.3 %; MEAN CORPUSCULAR HEMOGLOBIN 28.5 pg (27.0-31.0); MEAN CORPUSCULAR HGB CONC 31.4 g/dL (32.0-36.0); MEAN CORPUSCULAR VOLUME 90.6 fL (81.0-99.0); MEAN PLATELET VOLUME 10.1 fL (7.9-10.8); MONOCYTES # (AUTO) 0.6 10^3/uL (0.0-1.0); MONOCYTES % (AUTO) 8.2 %; NEUTROPHILS # (AUTO) 4.5 10^3/uL (1.5-6.6); NEUTROPHILS % (AUTO) 64.8 %; PLT - PLATELET COUNT 252 10^3/uL (130-450); RED BLOOD COUNT 3.62 10^6/uL (4.20-5.40); RED CELL DISTRIBUTION WIDTH 14.9 % (12.0-15.0)
[2023-11-19 06:17] LABS: CALCIUM 8.9 mg/dL (8.5-10.3); CREATININE 0.4 mg/dL (0.6-1.3); MAGNESIUM 1.8 mg/dL (1.7-2.3); PHOSPHORUS 3.3 mg/dL (2.5-5.0); POTASSIUM 3.8 mmol/L (3.5-4.5)
[2023-11-19] MEDS: LUBIPROSTONE PO SCH (07:30)
[2023-11-19] MEDS: SENNA 8.6 MG TABLET PO SCH (09:34)
[2023-11-19] MEDS: LOSARTAN 50 MG TABLET PO SCH ×2 (12:39→13:39)
[2023-11-19] MEDS ORDERED: LOSARTAN 50 MG TABLET PO SCH (21:00)
--- NOTE | 2023-11-19 22:52 | PROVIDER PROGRESS NOTE ---
Assessment/Plan - Problem List (1) Subdural hematoma Assessment/Plan: Patient neurologic status is at baseline. Anticoagulation has been withheld. [facility] neurosurgery trauma clinic wants to see her back in approximately [address] scan of the head. They recommended holding her warfarin for 7 days. (2) Accidental fall Conclusion/Plan: Patient had an accidental fall after tripping over a door entryway. This resulted in a subdural hematoma, left periorbital ecchymosis, a dislocated shoulder that has been reduced. She has been evaluated by PT/OT at [facility] and at this time they feel it is necessary for her to go to a detention facility. Patient is currently stable for transfer and awaiting placement for detention facility. (3) Atrial Fibrillation Continue propafenone. Reinitiate treatment with digoxin. (4) Hypertension Continue Losartan 50 mg twice daily. (4) Disposition Patient is medically cleared for transfer to a detention facility. - Current Meds Current Meds: Current Medications Generic Name Dose Route Start Last Admin Trade Name Freq PRN Reason Stop Dose Admin Hydrocodone Bitart/Acetaminophen 1 tab 11/16/23 07:09 11/18/23 18:15 Hydrocod/Acetam 5/325 Mg Tablet PO 1 tab Q4HR PRN Administration Moderate Pain (Level 4-6) Budesonide 0.5 mg 11/16/23 19:00 11/19/23 18:13 Budesonide 0.5 Mg/2 Ml Neb INH 0.5 mg RTBID DAISHA Administration Digoxin 250 mcg 11/17/23 09:00 11/19/23 09:24 Digoxin 125 Mcg Tablet PO 250 mcg DAILY DAISHA Administration Docusate Sodium 250 - 500 mg 11/17/23 09:00 11/19/23 09:33 Docusate Sodium 250 Mg Capsule PO Not Given DAILY DAISHA Magnesium Oxide 400 mg 11/16/23 15:00 11/19/23 09:24 Magnesium Oxide 400 Mg Tablet PO 400 mg DAILYWM DAISHA Administration Propafenone Hcl Er 1 each 11/16/23 09:00 11/19/23 21:10 425 Mg Cap.Er.12h PO 1 each BID DAISHA Administration Polyethylene Glycol 17 gm 11/16/23 09:00 11/19/23 09:34 Polyethylene Glycol 3350 17 Gm Packet PO Not Given DAILY DIASHA Senna 8.6 - 17.2 mg 11/17/23 09:00 11/19/23 09:34 Senna 8.6 Mg Tablet PO Not Given DAILY [facility] Senna 8.6 mg 11/19/23 09:00 11/19/23 09:34 Senna 8.6 Mg Tablet PO Not Given DAILY [facility] Sodium Chloride 10 ml 11/15/23 17:00 11/19/23 21:10 Sodium Chloride Flush 0.9% 10 Ml Syringe IVP 10 ml 0100,0900,1700 [facility] Administration - Lab Result Fish Bone Diagrams: 11/19/23 05:51 11/19/23 05:51 - Additional Planning My Orders: My Active Orders 11/19/23 09:00 Senna [Senokot] 8.6 mg PO DAILY 11/19/23 Lunch Dysphagia - Puree [DIET] 11/20/23 07:00 Lubriprostone 24 mcg PO QDAC Subjective - Subjective Patient Reports: Other (Alert. Denies chest pain, shortness of breath and abdominal pain. Continues to complain of intermittent left shoulder pain.) Objective Vital Signs: Vital Signs - 24 hr 11/18/23 11/19/23 11/19/23 23:37 01:14 08:00 Temperature 36.5 C 37.2 C Heart Rate Heart Rate [ 72 66 Brachial] Respiratory 16 20 Rate Blood Pressure 162/72 H [Right Brachial artery] Blood Pressure 144/58 H 197/84 H [Right Radial artery] O2 Saturation 98 97 11/19/23 11/19/23 11/19/23 10:39 14:03 16:00 Temperature 37.0 C Heart Rate 80 Heart Rate [ 70 Brachial] Respiratory 16 16 Rate Blood Pressure 158/58 H 145/54 H [Right Brachial artery] Blood Pressure [Right Radial artery] O2 Saturation 97 11/19/23 18:14 Temperature Heart Rate 67 Heart Rate [ Brachial] Respiratory 20 Rate Blood Pressure [Right Brachial artery] Blood Pressure [Right Radial artery] O2 Saturation Oxygen O2 Source Room air I&O (Last 24 Hrs): Intake and Output Totals x24h 11/17/23 11/18/23 11/19/23 23:59 23:59 23:59 Intake Total 1830 1540 2220 Output Total 1900 6850 3888 Balance -98 -9694 -3556 General: Alert, Oriented x3, No acute distress Neck: No JVD Neuro: Alert, Non Focal Cardiovascular: Other (Positive S1-S2 no extra heart sounds.) Respiratory: Other (Good air exchange in all lung [place] no wheezing no crackles.) Abdomen: Other (Soft. Nontender nondistended positive bowel sounds) Extremities: No cyanosis, No edema Skin: No rashes - Results Results: Laboratory Results WBC 7.0 x10^3/uL (4.8-10.8) 11/19/23 05:51 RBC 3.62 10^6/uL (4.20-5.40) L 11/19/23 05:51 Hgb 10.3 g/dL (12.0-16.0) L 11/19/23 05:51 Hct 32.8 % (37.0-47.0) L 11/19/23 05:51 MCV 90.6 fL (81.0-99.0) 11/19/23 05:51 MCH 28.5 pg (27.0-31.0) 11/19/23 05:51 MCHC 31.4 g/dL (32.0-36.0) L 11/19/23 05:51 RDW 14.9 % (12.0-15.0) 11/19/23 05:51 Plt Count 252 10^3/uL (130-450) 11/19/23 05:51 MPV 10.1 fL (7.9-10.8) 11/19/23 05:51 Neut # (Auto) 4.5 10^3/uL (1.5-6.6) 11/19/23 05:51 Lymph # (Auto) 1.4 10^3/uL (1.5-3.5) L 11/19/23 05:51 [place] # (Auto) 0.6 10^3/uL (0.0-1.0) 11/19/23 05:51 Eos # (Auto) 0.4 10^3/uL (0.0-0.7) 11/19/23 05:51 Baso # (Auto) 0.1 10^3/uL (0.0-0.1) 11/19/23 05:51 Absolute Nucleated RBC 0.00 x10^3/uL 11/19/23 05:51 Nucleated RBC % 0.0 /100WBC 11/19/23 05:51 Sodium 134 mmol/L (135-145) L 11/19/23 05:51 Potassium 3.8 mmol/L (3.5-4.5) 11/19/23 05:51 Chloride 99 mmol/L (101-111) L 11/19/23 05:51 Carbon Dioxide 30 mmol/L (21-32) 11/19/23 05:51 Anion Gap 5.0 (6-13) L 11/19/23 05:51 BUN 7 mg/dL (6-20) 11/19/23 05:51 Creatinine 0.4 mg/dL (0.6-1.3) L 11/19/23 05:51 Estimated GFR (MDRD) 152 (>89) 11/19/23 05:51 Glucose 101 mg/dL (74-104) 11/19/23 05:51 Calcium 8.9 mg/dL (8.5-10.3) 11/19/23 05:51 Phosphorus 3.3 mg/dL (2.5-5.0) 11/19/23 05:51 Magnesium 1.8 mg/dL (1.7-2.3) 11/19/23 05:51
[2023-11-20] MEDS: LUBIPROSTONE PO SCH (07:51)
[2023-11-20] MEDS: LOSARTAN 50 MG TABLET PO SCH (09:59)
--- NOTE | 2023-11-20 21:56 | PROVIDER PROGRESS NOTE ---
Assessment/Plan - Problem List (1) Subdural hematoma Assessment/Plan: Patient neurologic status is at baseline. Anticoagulation has been withheld. Merged With [facility] neurosurgery trauma clinic wants to see her back in approximately [address] scan of the head. They recommended holding her warfarin for 7 days. (2) Accidental fall Conclusion/Plan: Patient had an accidental fall after tripping over a door entryway. This resulted in a subdural hematoma, left periorbital ecchymosis, a dislocated shoulder that has been reduced. She has been evaluated by PT/OT at [facility] and at this time they feel it is necessary for her to go to a halfway facility. Patient is currently stable for transfer and awaiting placement for halfway facility. (3) Atrial Fibrillation Continue propafenone. Reinitiate treatment with digoxin. (4) Hypertension Continue Losartan 50 mg twice daily. (4) Disposition Patient is medically cleared for transfer to a halfway facility. - Current Meds Current Meds: Current Medications Generic Name Dose Route Start Last Admin Trade Name Freq PRN Reason Stop Dose Admin Hydrocodone Bitart/Acetaminophen 1 tab 11/16/23 07:09 11/18/23 18:15 Hydrocod/Acetam 5/325 Mg Tablet PO 1 tab Q4HR PRN Administration Moderate Pain (Level 4-6) Budesonide 0.5 mg 11/16/23 19:00 11/20/23 18:48 Budesonide 0.5 Mg/2 Ml Neb INH 0.5 mg RTBID DAISHA Administration Digoxin 250 mcg 11/17/23 09:00 11/20/23 09:59 Digoxin 125 Mcg Tablet PO 250 mcg DAILY DAISHA Administration Docusate Sodium 250 - 500 mg 11/17/23 09:00 11/20/23 10:00 Docusate Sodium 250 Mg Capsule PO Not Given DAILY DAISHA Losartan Potassium 50 mg 11/20/23 09:00 11/20/23 20:41 Losartan 50 Mg Tablet PO 50 mg BID DAISHA Administration Magnesium Oxide 400 mg 11/16/23 15:00 11/20/23 09:59 Magnesium Oxide 400 Mg Tablet PO 400 mg DAILYWM DAISHA Administration Non-Formulary Medication 24 mcg 11/20/23 07:00 11/20/23 07:51 Lubriprostone PO 24 mcg QDAC DAISHA Administration Propafenone Hcl Er 1 each 11/16/23 09:00 11/20/23 09:59 425 Mg Cap.Er.12h PO 1 each BID DAISHA Administration Polyethylene Glycol 17 gm 11/16/23 09:00 11/20/23 10:00 Polyethylene Glycol 3350 17 Gm Packet PO Not Given DAILY DAISHA Senna 8.6 - 17.2 mg 11/17/23 09:00 11/20/23 10:00 Senna 8.6 Mg Tablet PO Not Given DAILY DAISHA Senna 8.6 mg 11/19/23 09:00 11/20/23 10:00 Senna 8.6 Mg Tablet PO Not Given DAILY DAISHA Sodium Chloride 10 ml 11/15/23 17:00 11/20/23 18:28 Sodium Chloride Flush 0.9% 10 Ml Syringe IVP 10 ml 0100,0900,1700 DAISHA Administration - Lab Result Fish Bone Diagrams: 11/19/23 05:51 11/19/23 05:51 - Additional Planning My Orders: My Active Orders 11/20/23 07:00 Lubriprostone 24 mcg PO QDAC 11/20/23 09:00 Losartan [Cozaar] 50 mg PO BID Subjective - Subjective Patient Reports: Other (Alert. Denies chest pain shortness of breath and abdominal pain.She continues to complain of left shoulder pain) Objective Vital Signs: Vital Signs - 24 hr 11/20/23 11/20/23 11/20/23 00:28 07:20 07:46 Temperature 36.7 C 37.4 C Heart Rate 71 Heart Rate [ 75 70 Brachial] Respiratory 20 18 18 Rate Blood Pressure 138/53 H 151/61 H [Right Brachial artery] Blood Pressure [Right Radial artery] O2 Saturation 99 97 11/20/23 11/20/23 11/20/23 16:00 18:32 18:49 Temperature 36.9 C Heart Rate 89 Heart Rate [ 68 Brachial] Respiratory 16 18 Rate Blood Pressure 164/62 H 145/51 H [Right Brachial artery] Blood Pressure [Right Radial artery] O2 Saturation 97 11/20/23 20:40 Temperature Heart Rate Heart Rate [ 79 Brachial] Respiratory Rate Blood Pressure [Right Brachial artery] Blood Pressure 144/51 H [Right Radial artery] O2 Saturation Oxygen O2 Source Room air I&O (Last 24 Hrs): Intake and Output Totals x24h 11/18/23 11/19/23 11/20/23 23:59 23:59 23:59 Intake Total 1540 2220 600 Output Total 8608 [id number] 0061 [facility] -[id number] [id number] [phone] General: Alert, Oriented x3 Neck: Supple, No JVD Neuro: Alert, Non Focal Cardiovascular: Other (Positive S1-S2 no extra heart sounds.) Respiratory: Other (Good air exchange in all lung galicia no wheezing no crack les.) Abdomen: Other (Soft nontender positive bowel sounds) Extremities: No clubbing, No edema Skin: No rashes - Results Results: Laboratory Results WBC 7.0 x10^3/uL (4.8-10.8) 11/19/23 05:51 RBC 3.62 10^6/uL (4.20-5.40) L 11/19/23 05:51 Hgb 10.3 g/dL (12.0-16.0) L 11/19/23 05:51 Hct 32.8 % (37.0-47.0) L 11/19/23 05:51 MCV 90.6 fL (81.0-99.0) 11/19/23 05:51 MCH 28.5 pg (27.0-31.0) 11/19/23 05:51 MCHC 31.4 g/dL (32.0-36.0) L 11/19/23 05:51 RDW 14.9 % (12.0-15.0) 11/19/23 05:51 Plt Count 252 10^3/uL (130-450) 11/19/23 05:51 MPV 10.1 fL (7.9-10.8) 11/19/23 05:51 Neut # (Auto) 4.5 10^3/uL (1.5-6.6) 11/19/23 05:51 Lymph # (Auto) 1.4 10^3/uL (1.5-3.5) L 11/19/23 05:51 [place] # (Auto) 0.6 10^3/uL (0.0-1.0) 11/19/23 05:51 Eos # (Auto) 0.4 10^3/uL (0.0-0.7) 11/19/23 05:51 Baso # (Auto) 0.1 10^3/uL (0.0-0.1) 11/19/23 05:51 Absolute Nucleated RBC 0.00 x10^3/uL 11/19/23 05:51 Nucleated RBC % 0.0 /100WBC 11/19/23 05:51 Sodium 134 mmol/L (135-145) L 11/19/23 05:51 Potassium 3.8 mmol/L (3.5-4.5) 11/19/23 05:51 Chloride 99 mmol/L (101-111) L 11/19/23 05:51 Carbon Dioxide 30 mmol/L (21-32) 11/19/23 05:51 Anion Gap 5.0 (6-13) L 11/19/23 05:51 BUN 7 mg/dL (6-20) 11/19/23 05:51 Creatinine 0.4 mg/dL (0.6-1.3) L 11/19/23 05:51 Estimated GFR (MDRD) 152 (>89) 11/19/23 05:51 Glucose 101 mg/dL (74-104) 11/19/23 05:51 Calcium 8.9 mg/dL (8.5-10.3) 11/19/23 05:51 Phosphorus 3.3 mg/dL (2.5-5.0) 11/19/23 05:51 Magnesium 1.8 mg/dL (1.7-2.3) 11/19/23 05:51
[2023-11-21 05:57] LABS: BASOPHILS % (AUTO) 0.6 %; EOSINOPHILS # (AUTO) 0.3 10^3/uL (0.0-0.7); EOSINOPHILS % (AUTO) 3.7 %; HCT - HEMATOCRIT 31.9 % (37.0-47.0); HGB - HEMOGLOBIN 10.4 g/dL (12.0-16.0); LYMPHOCYTES # (AUTO) 1.9 10^3/uL (1.5-3.5); LYMPHOCYTES % (AUTO) 27.4 %; MEAN CORPUSCULAR HEMOGLOBIN 28.9 pg (27.0-31.0); MEAN CORPUSCULAR HGB CONC 32.6 g/dL (32.0-36.0); MEAN CORPUSCULAR VOLUME 88.6 fL (81.0-99.0); MEAN PLATELET VOLUME 10.2 fL (7.9-10.8); MONOCYTES # (AUTO) 0.6 10^3/uL (0.0-1.0); MONOCYTES % (AUTO) 9.1 %; NEUTROPHILS # (AUTO) 4.1 10^3/uL (1.5-6.6); NEUTROPHILS % (AUTO) 58.3 %; PLT - PLATELET COUNT 257 10^3/uL (130-450); RED CELL DISTRIBUTION WIDTH 15.3 % (12.0-15.0)
[2023-11-21 06:07] LABS: INR 1.2 (0.8-1.2); PT - PROTHROMBIN TIME 12.4 secs (9.9-12.6)
[2023-11-21 06:17] LABS: CALCIUM 9.1 mg/dL (8.5-10.3); CREATININE 0.4 mg/dL (0.6-1.3); MAGNESIUM 1.9 mg/dL (1.7-2.3); PHOSPHORUS 3.4 mg/dL (2.5-5.0); POTASSIUM 3.6 mmol/L (3.5-4.5)
[2023-11-21 07:46] VITALS: BP 151/63; O2SAT 96
--- NOTE | 2023-11-21 09:10 | Discharge Plan ---
"Discharge Plan for SNF / [facility]IELA - Discharge Plan And Transition Orders Problem Reviewed?: Yes Disposition: 03 SNF DC/Xfer Condition: Good Allergies and Adverse Reactions: Allergies Allergy/AdvReac Type Severity Reaction Status Date / Time codeine Allergy Mild Nausea Verified 11/14/23 13:08 morphine Allergy Nausea Verified 11/14/23 13:08 - SNF / ASSISTED Transition Orders Discharge Diagnosis: (1) Subdural hematoma Assessment/Plan: Patient neurologic status is at baseline. Anticoagulation has been withheld. [facility] neurosurgery trauma clinic wants to see her back in approximately [address] scan of the head. They recommended holding her warfarin for 7 days. (2) Accidental fall Conclusion/Plan: Patient had an accidental fall after tripping over a door entryway. This resulted in a subdural hematoma, left periorbital ecchymosis, a dislocated shoulder that has been reduced. She has been evaluated by PT/OT at [facility] and at this time they feel it is necessary for her to go to a long-term facility. Patient is currently stable for transfer and awaiting placement for long-term facility. (3) Atrial Fibrillation Continue propafenone. Reinitiate treatment with digoxin. (4) Hypertension Continue Losartan 50 mg twice daily. (4) Disposition Patient is medically cleared for transfer to a long-term facility. Medicare Certification Statement: [facility] cert[facility] medically necessary on a continuing basis for any of the conditions for which she/he is receiving care during hospitalization. Notify PCP of admission and forward orders to primary provider for signature. Weight on admission and: Weekly Call PCP immediately if weight increases by: 5 kg Other Notification Orders: Call PCP immediately if patient develops dyspnea, chest pain/tightness or edema. Additional Bowel Program Orders: If no BM after 2 days, nurse may give M.O.M. 30ml PO PRN and/or ducolax Supp 1 TX and/or SUZY 250mg P.O., and/or senna 1-2 tabs PO. On day 3 nurse may give repeat above order until residents constipation is resolved. Annual Influenza Vaccine (between Apr 21 and November 18): Yes Two-step PPD per [facility] [phone] or approved exception documents: Yes Treatments & Other Orders: Resume warfarin on November 27. Will need a repeat CT scan head before Neurosurgery trauma clinic appointment in 1 month. Oxygen Orders: Maintain oxygen greater than 90% Medication Orders: PLEASE REFER TO THE DISCHARGE MEDICATION LIST. - Medications New Prescriptions: Beclomethasone Dipropionate [Qvar Redihaler (40 mcg)] 1 puffs IH BID #10.6 gm - Diet Type: Geriatric Texture: Puree Liquids: Thin May have monthly special meal: Yes - Therapies | Activity Therapy: Evaluation | Treat if indicated: Speech, PT, OT Rehabilitation Potential: Maximize functional status Activity: Activity as Tolerated Assistance Devices: Walker Follow Up: [facility] neurosurgery trauma clinic wants to see her back in approximately [address] scan of the head. Follow-up with PCP in 3-5 days."
--- NOTE | 2023-11-21 09:22 | DISCHARGE SUMMARY ---
Discharge Summary Admit Date: 11/15/23 Discharge Date: 11/21/23 Discharging Provider: Esperanza French Primary Care Provider: Kate Hale Code Status: Attempt Resuscitation Condition at Discharge: Good Discharge Disposition: 03 SNF DC/Xfer - DIAGNOSES Discharge Diagnoses with Status of Each Condition: (1) Subdural hematoma Assessment/Plan: Patient neurologic status is at baseline. Anticoagulation has been withheld. [facility] neurosurgery trauma clinic wants to see her back in approximately [address] scan of the head. They recommended holding her warfarin for 7 days. (2) Accidental fall Conclusion/Plan: Patient had an accidental fall after tripping over a door entryway. This resulted in a subdural hematoma, left periorbital ecchymosis, a dislocated shoulder that has been reduced. She has been evaluated by PT/OT at [facility] and at this time they feel it is necessary for her to go to a long term facility. Patient is currently stable for transfer and awaiting placement for long term facility. (3) Atrial Fibrillation Continue propafenone. Reinitiate treatment with digoxin. (4) Hypertension Continue Losartan 50 mg twice daily. (4) Disposition Patient is medically cleared for transfer to a long term facility. - HPI History of Present Illness: Annette Monroe is a 82-year-old woman who had a mechanical ground-level fall that occurred when she tripped on a door in a house. Patient fell forward and hit her head with no loss of consciousness. She was brought to the and underwent a CT scan of the head which revealed a left-sided eccentric I will sign subdural hematoma measuring approximately 9 mm in thickness with no mass effect or midline shift. Patient has a history of atrial fibrillation and is on warfarin. This was reversed with PCC and vitamin K and the decision was made to transfer the patient to [facility] for escalation of care. Patient's fall also resulted in a shoulder dislocation that has been resolved. At [facility] she underwent a repeat CT scan of the head which was stable. Her Luciano Coma Scale remained at 15 and her neurologic exam was normal. Patient and the family felt that she was below her baseline functional status and would need significant assistance at home that she did not have and because [facility] was on divert the patient was transferred back to for further care and disposition. - HOSPITAL COURSE Hospital Course: Patient is an 82-year-old female who presented to the ED after sustaining a ground-level fall with head impact. A CT scan revealed a left sided subdural hematoma. She was transferred to [facility] for higher level of care where she underwent repeat CT of her head which was stable. Her GCS remained at 15 and her neurologic exam was normal therefore she was transferred back to [facility]. [facility] neurosurgery recommended holding warfarin for 7 days and a follow-up in [address] month with [address] of her head. Her hospital course was unremarkable. She was discharged to a swing bed for additional PT/OT. - ALLERGIES Allergies/Adverse Reactions: Allergies Allergy/AdvReac Type Severity Reaction Status Date / Time codeine Allergy Mild Nausea Verified 11/14/23 13:08 morphine Allergy Nausea Verified 11/14/23 13:08 - MEDICATIONS Home Medications: Ambulatory Orders Medication Instructions Recorded Confirmed Digoxin [Lanoxin] 250 mcg PO DAILY 11/15/23 11/15/23 Lubriprostone 24 mcg PO QDAC 11/15/23 11/15/23 Magnesium Oxide [Mag Ox] 400 mg PO DAILYWM 11/15/23 11/15/23 Pravastatin Sodium 20 mg PO QPM 11/15/23 11/15/23 Propafenone HCl [Propafenone HCl 425 mg PO BID 11/15/23 11/15/23 ER] Spironolactone [Aldactone] 12.5 mg PO DAILY 11/15/23 11/15/23 Triamcinolone 0.1% Oint [Kenalog 1 applic TOP PRN PRN 11/15/23 11/16/23 0.1% Oint] Beclomethasone 40 Mcg [Qvar 40] 1 puffs INH BID 11/16/23 11/16/23 Beclomethasone Dipropionate [Qvar 1 puffs IH BID #10.6 gm 11/16/23 Redihaler (40 mcg)] Loratadine [Claritin] 10 mg PO DAILY PRN 11/16/23 11/16/23 Losartan [Cozaar] 50 mg PO BID 11/16/23 11/16/23 Sennosides/Docusate Sodium 1 each PO DAILY PRN 11/16/23 11/16/23 [Senna-S Tablet] - PHYSICAL EXAM AT DISCHARGE General Appearance: positive: No acute distress, Alert Cardiovascular: positive: Regular rate & rhythm Abdomen: positive: Non-tender, No organomegaly, Nml bowel sounds Neurologic/Psychiatric: positive: Oriented x3, CN's nml (2-12) - LABS Result Diagrams: 11/21/23 05:28 11/21/23 05:28 - FOLLOW UP Follow Up: Follow up with [facility] Neurosurgery trauma clinic in [address] head. Follow up with PCP in 3-5 days. - TIME SPENT Time Spent in Discharge (Minutes): 35
[2023-11-21] MEDS ORDERED: WARFARIN 5 MG TABLET PO SCH (15:00)
== END 2023-11-21 11:45 | DRG 84 ==
LOC: MS2 19:47
PROVIDERS: ADMIT Internal Medicine; ATTEND Family Medicine
DX: S06.5XAA Traumatic subdural hemorrhage with loss of consciousness status unknown, initial encounter (principal); S43.006A Unspecified dislocation of unspecified shoulder joint, initial encounter; W01.0XXA Fall on same level from slipping, tripping and stumbling without subsequent striking against object, initial encounter; I48.91 Unspecified atrial fibrillation; I10 Essential (primary) hypertension; E78.00 Pure hypercholesterolemia, unspecified; J45.909 Unspecified asthma, uncomplicated; K59.09 Other constipation; Z79.01 Long term (current) use of anticoagulants; Z79.899 Other long term (current) drug therapy; Z88.5 Allergy status to narcotic agent; Z90.10 Acquired absence of unspecified breast and nipple; Z90.49 Acquired absence of other specified parts of digestive tract; Z90.710 Acquired absence of both cervix and uterus
CPT/HCPCS: 36415; 80048; 83735; 84100; 85025; 85610; 94640; 97110; 97116; 97163; 97166; 97530; A9270; J7626